=== PATIENT | female | born 2000 | race Caucasian/White ===

== ENCOUNTER 2023-01-10 11:40 | Emergency (ER) | payer BC, MEDICAID ==
[~2023-01-10] VITALS: Ht 165.1 cm; Wt 81.8 kg
[~2023-01-10 11:40] MED LIST: CEPH-357 PO; NO HOME MEDS; PHEN-786 PO
[2023-01-10 12:03] VITALS: BP 120/73
[2023-01-10] MEDS ORDERED: dexamethasone sod phosphate 10mg/ml inj IM STA (12:33)
[2023-01-10] MEDS ORDERED: diazepam 5mg tablet PO ONE (12:35)
[2023-01-10] MEDS ORDERED: HYDROcodone/acetaminophen 5mg/325mg tablet PO ONE (12:35)
[2023-01-10] MEDS ORDERED: ketorolac trometh inj. 60 MG/2 ML VIAL IM ONE (12:35)
[2023-01-10] MEDS ORDERED: NAPR-56 PO (13:04)
[2023-01-10] MEDS ORDERED: ORPH100T4 PO (13:04)
== END 2023-01-10 14:32 | disposition home or self-care (01) ==
LOC: ER 11:41
DX: M41.80 Other forms of scoliosis, site unspecified (principal); G89.29 Other chronic pain; M54.9 Dorsalgia, unspecified; M62.838 Other muscle spasm
CPT/HCPCS: 96372; 99284; J1100; J1885

== ENCOUNTER 2023-01-21 09:08 | Emergency (ER) | payer BC ==
[~2023-01-21] VITALS: Ht 167.6 cm; Wt 83.0 kg
[~2023-01-21 09:08] MED LIST changes: +NAPR-56 PO; +ORPH100T4 PO
[2023-01-21 09:10] VITALS: BP 127/87
[2023-01-21] MEDS ORDERED: LIDOcaine 5% patch TP STA (09:42)
[2023-01-21] MEDS ORDERED: ketorolac trometh inj. 60 MG/2 ML VIAL IM ONE (09:45)
[2023-01-21] MEDS ORDERED: ketorolac trometh. 30mg/ml inj. IM ONE (09:45)
[2023-01-21] MEDS ORDERED: LIDO-15 TD (10:02)
[2023-01-21] MEDS ORDERED: IBUP-1986 PO (10:02)
== END 2023-01-21 10:26 | disposition home or self-care (01) ==
LOC: ER 09:10
DX: G89.29 Other chronic pain (principal); M54.40 Lumbago with sciatica, unspecified side; M41.9 Scoliosis, unspecified; Z79.899 Other long term (current) drug therapy
CPT/HCPCS: 96372; 99283; J1885

== ENCOUNTER 2023-11-01 09:49 | Emergency (ER) | payer BC ==
[~2023-11-01] VITALS: Ht 175.3 cm; Wt 77.9 kg
[~2023-11-01 09:49] MED LIST changes: +IBUP-1986 PO; +LIDO-15 TD; -NAPR-56 PO
[2023-11-01] MEDS: dexamethasone sod phosphate 10mg/ml inj IM STA (10:38)
[2023-11-01] MEDS: baclofen 10mg tablet PO ONE (10:38)
[2023-11-01] MEDS ORDERED: PRED20TA PO (11:27)
[2023-11-01] MEDS ORDERED: BACL10TA2 PO (11:27)
[2023-11-01 11:43] VITALS: BP 116/67; PULSE 54; RESP 16; TEMP 98; O2SAT 98
== END 2023-11-01 11:45 | disposition home or self-care (01) ==
LOC: ER 09:49
DX: M54.12 Radiculopathy, cervical region (principal); Z79.2 Long term (current) use of antibiotics; Z79.1 Long term (current) use of non-steroidal anti-inflammatories (NSAID); Z79.899 Other long term (current) drug therapy
CPT/HCPCS: 96372; 99283; J1100